=== PATIENT | male | born 1970 | race Caucasian/White ===

== ENCOUNTER 2016-09-07 09:14 | Emergency (ER) | payer OTHER ==
[~2016-09-07] VITALS: Ht 177.8 cm; Wt 97.7 kg
[~2016-09-07 09:14] MED LIST: ASPEC81 PO; ATOR-24 PO; CETI10TA84 PO; CRG3125 PO; LSN25 PO; OXYC-57 PO; PLV75 PO; RIVA1TAB PO; SPR25 PO
[2016-09-07 09:17] VITALS: TEMP 36.4; Ht 177.8 cm; Wt 97.7 kg
[2016-09-07 09:29] VITALS: O2SAT 98
[2016-09-07] MEDS ORDERED: SPIR25TA PO (10:08)
[2016-09-07 10:12] LABS: HEMATOCRIT 40.5 % (42-52); MEAN CELL VOLUME 92.5 fL (80-100); MEAN CORPUSCULAR HEMOGLOBIN 33.3 pg (25-34); MEAN PLATELET VOLUME 11.6 fL (7.4-10.4); PLATELET COUNT 151 K/uL (130-400); RED BLOOD COUNT 4.38 M/uL (4.7-6.1); WHITE BLOOD COUNT 7.26 K/uL (4.8-10.8)
[2016-09-07 10:19] LABS: INR 1.2 (0.9-1.1); PARTIAL THROMBOPLASTIN RATIO 1.2; PROTHROMBIN TIME (PATIENT) 12.6 SECONDS (9.0-12.0)
[2016-09-07 10:29] LABS: ALT/SGPT 35 U/L (12-78); AST/SGOT 25 U/L (15-37); BLOOD UREA NITROGEN 14 mg/dl (7-18); BUN/CREATININE RATIO 15.3 (10-20); CALCIUM 8.9 mg/dl (8.5-10.1); CARBON DIOXIDE 24 mmol/L (21-32); CHLORIDE 110 mmol/L (98-107); GLUCOSE 104 mg/dl (70-99); MAGNESIUM 2.4 mg/dl (1.8-2.4); POTASSIUM 4.4 mmol/L (3.5-5.1); SODIUM 142 mmol/L (136-145)
--- NOTE | 2016-09-07 10:32 | DIAGNOSTIC IMAGING REPORT ---
CHEST 2 VIEWS ROUTINE CLINICAL HISTORY: CHEST PAIN dyspnea COMPARISON STUDY: 03/19/2016 FINDINGS: Chronic pleural reactive changes left base. No acute infiltrate. Diaphragms are smooth. Calcifications are sharp. IMPRESSION: Chronic pleural reactive changes left base. No acute process. Electronically signed by: Benny Delatorre M.D. 09/07/2016 10:30 AM Dictated Date/Time: 09/07/2016 10:30 AM
[2016-09-07 10:39] LABS: ALB/GLOB RATIO 1.2 (0.9-2); ALKALINE PHOSPHATASE 66 U/L (45-117); CKMB/CK RATIO 1.3 (0-3.0)
--- NOTE | 2016-09-07 10:41 | DIAGNOSTIC IMAGING REPORT ---
CERVICAL SPINE 5 VIEWS HISTORY: arms numb, right more than left COMPARISON: None. FINDINGS: The cervical spine is visualized from C1 through the superior endplate of T1. There is no fracture. No subluxation. Bilateral neural foramen are patent. Mild disc space narrowing and anterior osteophytes at C6-C7. Prevertebral soft tissues and the atlantodens interval are intact. IMPRESSION: No fracture or subluxation within the cervical spine. Mild degenerative disc disease at C6-C7. Electronically signed by: Ken Arshad M.D. 09/07/2016 10:39 AM Dictated Date/Time: 09/07/2016 10:38 AM
[2016-09-07 11:12] VITALS: BP 115/67; PULSE 69; O2SAT 96
--- NOTE | 2016-09-07 13:38 | EMERGENCY ROOM VISIT NOTE ---
History Report prepared by Az: Avelino Freitas Under the Supervision of: Dr. Jorge Luis Whitehead M.D. First contact with patient: 09:28 Chief Complaint: CARDIAC ASSESSMENT Stated Complaint: NUMBNESS,TINGLING IN ARMS,BACK PAIN,SENT BY CARDIO History of Present Illness The patient is a 46 year old male who presents to the Emergency Room with complaints of constant right arm numbness for the past two days. The numbness & tingling is felt from the elbow down to his hand. He has also had intermittent left arm numbness. The numbness is not exertional. The patient denies weakness in his hands or arms, chest pain, or shortness of breath. The patient denies any neck pain or any previous neck injuries. 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 He does note intermittent lower back pain that is rated 2/10 in severity. He denies any upper back pain or pain between the shoulders. He denies recent cough, colds, or congestion. The patient was referred to the ED by Dr. Mcneal's office ( Cardiology), where the patient follows up for a history of [place] this past February. The patient's catheterization showed a 100% blockage in one coronary artery that required two stents. There was 10-20% blockage in another coronary artery which did not require any interventions. The patient is on Plavix and Aspirin. He has a history PE for which he is on Xarelto. Source of History: patient Onset: two days ago Position: arm (right) Quality: numbness Timing: constant Associated Symptoms: + back pain (lower only), No SOB, No chest pain, No cough, No neck pain, No weakness Review of Systems See HPI for pertinent positives & negatives. A total of 10 systems reviewed and were otherwise negative. Past Medical & Surgical Medical Problems: (1) CAD (coronary artery disease) (2) Hyperlipidemia (3) Kidney stones (4) Obesity (BMI 30.0-34.9) (5) Tobacco abuse Surgical Problems: (1) H/O arthroscopy of right knee (2) H/O vasectomy Family History FH: heart disease Hypertension Social History Smoking Status: Former Smoker Alcohol Use: occasionally Marital Status: single Occupation Status: employed Current/Historical Medications Scheduled Aspirin (Aspirin EC Low Dose), 81 MG PO QAM Atorvastatin (Lipitor), 80 MG PO DAILY Carvedilol (Carvedilol), 3.125 MG PO BID Clopidogrel Bisulfate (Clopidogrel), 75 MG PO QAM Lisinopril (Lisinopril), 2.5 MG PO QAM Rivaroxaban (Xarelto), 20 MG PO DAILY Spironolactone (Aldactone), 12.5 MG PO QAM Scheduled PRN Cetirizine (Zyrtec), 10 MG PO DAILY PRN for ALLERGIC REACTION Allergies Coded Allergies: No Known Allergies (Unverified , 09/07/16) Physical Exam Vital Signs Date Time Temp Pulse Resp B/P Pulse Ox O2 Delivery O2 Flow Rate FiO2 09/07/16 11:12 69 16 115/67 96 Room Air 09/07/16 10:35 69 18 114/71 97 Room Air 09/07/16 09:29 98 Room Air 09/07/16 09:29 98 Room Air 09/07/16 09:28 143 09/07/16 09:17 36.4 76 18 130/81 98 Room Air Physical Exam GENERAL: Patient is in no acute distress. HEENT: No acute trauma, normocephalic atraumatic, mucous membranes moist, no nasal congestion, no scleral icterus. NECK: No stridor, no adenopathy, no meningismus, trachea is midline. LUNGS: Clear to auscultation bilaterally, no wheeze, no rhonchi, breath sounds equal. HEART: Without murmurs gallops or rubs, regular rate and rhythm. ABDOMEN: Soft, nontender, bowel sounds positive, no hernias, no peritonitis. EXTREMITIES: No cyanosis or edema, full range of motion of all the joints without pain or difficulty, no signs for acute trauma. Strong radial pulses bilaterally. NEUROLOGIC: Oriented x 3, no acute motor or sensory deficits, no focal weakness. Radial ulnar and median nerve function in upper extremities is intact bilaterally. SKIN: No rash, no jaundice, no diaphoresis. Medical Decision & Procedures ER Provider Diagnostic Interpretation: X-ray results as stated below per interpretation by me and the radiologist: CERVICAL SPINE 5 VIEWS HISTORY: arms numb, right more than left COMPARISON: None. FINDINGS: The cervical spine is visualized from C1 through the superior endplate of T1. There is no fracture. No subluxation. Bilateral neural foramen are patent. Mild disc space narrowing and anterior osteophytes at C6-C7. Prevertebral soft tissues and the atlantodens interval are intact. IMPRESSION: No fracture or subluxation within the cervical spine. Mild degenerative disc disease at C6-C7. Electronically signed by: Ken Arshad M.D. 09/07/2016 10:39 AM Dictated Date/Time: 09/07/2016 10:38 AM CHEST 2 VIEWS ROUTINE CLINICAL HISTORY: CHEST PAIN dyspnea COMPARISON STUDY: 03/19/2016 FINDINGS: Chronic pleural reactive changes left base. No acute infiltrate. Diaphragms are smooth. Calcifications are sharp. IMPRESSION: Chronic pleural reactive changes left base. No acute process. Electronically signed by: Benny Delatorre M.D. 09/07/2016 10:30 AM Dictated Date/Time: 09/07/2016 10:30 AM Laboratory Results 09/07/16 09:54 09/07/16 09:54 Test 09/07/16 09:54 Red Blood Count 4.38 M/uL (4.7-6.1) Mean Corpuscular Volume 92.5 fL (80-100) Mean Corpuscular Hemoglobin 33.3 pg (25-34) Mean Corpuscular Hemoglobin Concent 36.0 g/dl (32-36) RDW Standard Deviation 42.7 fL (36.4-46.3) RDW Coefficient of Variation 12.6 % (11.5-14.5) Mean Platelet Volume 11.6 fL (7.4-10.4) Prothrombin Time 12.6 SECONDS (9.0-12.0) Prothromb Time International Ratio 1.2 (0.9-1.1) Activated Partial Thromboplast Time 30.4 SECONDS (21.0-31.0) Partial Thromboplastin Ratio 1.2 Anion Gap 8.0 mmol/L (3-11) Est Creatinine Clear Calc Drug Dose 122.8 ml/min Estimated GFR () 120.0 Estimated GFR (Non- 103.5 BUN/Creatinine Ratio 15.3 (10-20) Calcium Level 8.9 mg/dl (8.5-10.1) Magnesium Level 2.4 mg/dl (1.8-2.4) Total Bilirubin 0.9 mg/dl (0.2-1) Aspartate Amino Transf (AST/SGOT) 25 U/L (15-37) Alanine Aminotransferase (ALT/SGPT) 35 U/L (12-78) Alkaline Phosphatase 66 U/L (45-117) Total Creatine Kinase 298 U/L (39-308) Creatine Kinase MB 4.0 ng/ml (0.5-3.6) Creatine Kinase MB Ratio 1.3 (0-3.0) Troponin I < 0.015 ng/ml (0-0.045) Total Protein 7.4 gm/dl (6.4-8.2) Albumin 4.1 gm/dl (3.4-5.0) Globulin 3.3 gm/dl (2.5-4.0) Albumin/Globulin Ratio 1.2 (0.9-2) Thyroid Stimulating Hormone (TSH) 0.760 uIu/ml (0.300-4.500) Laboratory results reviewed by me. ECG Indication: other (arm numbness) Rate (beats per minute): 72 Rhythm: normal sinus Findings: no acute ischemic change (no obvious), no ectopy, other (old anterior infarct) ED Course 0930: The patient was evaluated in room A3. A complete history and physical exam was performed. 1101: Discussed the case with Dr. Mcneal, Lawn Mower Repairer. He does not believe the patient's symptoms are cardiac. He recommends talking with the patient's family doctor's office about taking him off of Xarelto. 1110: Reevaluated the patient. Discussed results and discharge instructions: He verbalized understanding and agreement. The patient is ready for discharge. Medical Decision Differential diagnosis includes nerve impingement, arthritis, [place], electrolyte imbalance, anemia, arterial flow issues, aortic dissection, PE. There is no leukocytosis or concerning anemia. No significant electrolyte abnormality, kidney failure or hepatitis. No worrisome coagulopathy. EKG shows an old anterior infarct and a normal sinus rhythm, no acute ischemia. Cardiac enzyme testing times one is not consistent with acute cardiac injury. Chest x-ray shows no CHF or pneumonia, some chronic findings were seen. C- spine films show possible mild arthritis, no fractures or bony malalignment. On exam, the patient had good neurovascular function in both upper extremities. I did talk with the patient's senior etl developer. The patient was felt stable from a cardiac standpoint based on his workup and history. He is being discharged to follow with his primary doctor's office for potential further workup for the numbness. Patient was also to talk with his doctor's office about maybe stopping his Xarelto. The patient would like to stop this medication as he thinks it may be part of why he is having unusual symptoms. The patient was encouraged to return for chest pain or worsening symptoms. He was reassured. He was discharged home. Consults Time Called: [phone] Consulting Physician: Dr. Mcneal, Lawn Mower Repairer. Returned Call: [phone]: Discussed the case with Dr. Mcneal, Lawn Mower Repairer. He does not believe the patient's symptoms are cardiac. He recommends talking with the patient's family doctor's office about taking him off of Xarelto. Impression Primary Impression: Bilateral arm numbness Additional Impression: History of [place] (myocardial infarction) Scribe Attestation The scribe's documentation has been prepared under my direction and personally reviewed by me in its entirety. I confirm that the note above accurately reflects all work, treatment, procedures, and medical decision making performed by me. Departure Information Dispostion Home / Self-Care Referrals Lara Esparza M.D. (PCP) Forms IMPORTANT VISIT INFORMATION Patient Instructions My [facility] [address] Additional Instructions talk with your brenda md about the arm numbness and about maybe stopping the Xarelto heart testing here was all ok return for worsening symptoms, chest pain or if feel short of breath Problem Qualifiers
== END 2016-09-07 11:29 | disposition home or self-care (01) ==
LOC: C.EDB 09:16 → C.EDA 11:29
DX: R20.2 Paresthesia of skin (principal); I25.2 Old myocardial infarction; E78.5 Hyperlipidemia, unspecified; I25.10 Atherosclerotic heart disease of native coronary artery without angina pectoris; Z87.442 Personal history of urinary calculi; Z87.891 Personal history of nicotine dependence; Z98.52 Vasectomy status; Z98.890 Other specified postprocedural states; Z79.82 Long term (current) use of aspirin; Z79.899 Other long term (current) drug therapy; Z82.49 Family history of ischemic heart disease and other diseases of the circulatory system

== ENCOUNTER → 2017-04-14 | Outpatient (CLI) | payer OTHER ==
[~2017-04-14] MED LIST changes: -OXYC-57 PO; +SPIR25TA PO; -SPR25 PO
[2017-04-14 17:48] LABS: ALT/SGPT 43 U/L (12-78); BLOOD UREA NITROGEN 19 mg/dl (7-18); BUN/CREATININE RATIO 19.6 (10-20); CALCIUM 9.5 mg/dl (8.5-10.1); CARBON DIOXIDE 28 mmol/L (21-32); CHLORIDE 104 mmol/L (98-107); CREATININE 0.97 mg/dl (0.60-1.40); GLUCOSE 85 mg/dl (70-99); POTASSIUM 3.9 mmol/L (3.5-5.1); SODIUM 137 mmol/L (136-145)
[2017-04-14 17:51] LABS: ALB/GLOB RATIO 1.1 (0.9-2); ALKALINE PHOSPHATASE 71 U/L (45-117); AST/SGOT 29 U/L (15-37)
[2017-04-14 18:06] LABS: HEMATOCRIT 41.8 % (42-52); MEAN CELL VOLUME 96.1 fL (80-100); MEAN CORPUSCULAR HEMOGLOBIN 33.3 pg (25-34); MEAN CORPUSCULAR HGB CONC 34.7 g/dl (32-36); MEAN PLATELET VOLUME 11.7 fL (7.4-10.4); PLATELET COUNT 186 K/uL (130-400); RED BLOOD COUNT 4.35 M/uL (4.7-6.1); WHITE BLOOD COUNT 8.95 K/uL (4.8-10.8)
== END | disposition home or self-care (01) ==
LOC: C.LAB1850 15:45
PROVIDERS: ATTEND Physician Assistant
DX: I25.10 Atherosclerotic heart disease of native coronary artery without angina pectoris (principal)